=== PATIENT | male | born 1945 | race Caucasian/White ===

== ENCOUNTER → 2018-11-07 | Day surgery (SDC) | payer MEDICARE, OTHER ==
[~2018-11-07] MED LIST: ASPI-630 PO; DUTA0.5C PO; IV RINGERS,LACTATED 1000ML 1,000 ML IV ONE; NAPR500T8 PO; PROPOFOL 40 ML IV ONE; SERT25TA PO; TAMS0.4C2 PO
[2018-11-07 13:58] VITALS: BP 122/68
== END | disposition home or self-care (01) ==
LOC: SURG 12:15
PROVIDERS: ATTEND Internal Medicine Gastroenterology
DX: K57.30 Diverticulosis of large intestine without perforation or abscess without bleeding (principal); K64.0 First degree hemorrhoids; Z86.010 Personal history of colon polyps; Z83.3 Family history of diabetes mellitus; Z82.49 Family history of ischemic heart disease and other diseases of the circulatory system; Z82.3 Family history of stroke; Z72.89 Other problems related to lifestyle; Z72.0 Tobacco use; Z79.899 Other long term (current) drug therapy; Z79.82 Long term (current) use of aspirin; Z98.890 Other specified postprocedural states
CPT/HCPCS: 45378; J2704